=== PATIENT | male | born 1970 | race Caucasian/White ===

== ENCOUNTER 2023-08-27 14:33 | Emergency (ER) | payer OTHER, SELFPAY ==
[2023-08-27 14:48] VITALS: BP 115/85; PULSE 64; RESP 16; TEMP 36.9; O2SAT 99; BMI 25.8
--- NOTE | 2023-08-27 14:51 | XR_ITS ---
The [address] [address] Patient Name: TALON MCGRAW MRN: [id number] date: 1970 Sex: M Assigned Patient Location: ER Current Patient Location: ER Accession/Order Number: [id number] Exam Date: 08/27/2023 14:57 Report Date: 08/27/2023 15:23 At the request of: PENNIE YANES Procedure: XR ankle LT min 3V PROCEDURE: XR ankle LT min 3V, XR tibia fibula LT 2V HISTORY: left ankle injury COMPARISON: None. FINDINGS: BONES:No fracture, acute abnormality, or significant arthropathy. Degenerative enthesophyte at Achilles tendon insertion into the calcaneus. SOFT TISSUES:No visible soft tissue swelling. EFFUSION:None visible. OTHER: Negative. XR/XR ankle LT min 3V IMPRESSION: 1. No acute bone abnormality or suspicious findings. Electronically authenticated by: MARII FLORES Date: 08/27/2023 15:23
--- NOTE | 2023-08-27 14:55 | XR_ITS ---
The [address] [address] Patient Name: TALON MCGRAW MRN: [id number] date: 1970 Sex: M Assigned Patient Location: ER Current Patient Location: ER Accession/Order Number: [id number] Exam Date: 08/27/2023 14:57 Report Date: 08/27/2023 15:23 At the request of: PENNIE YANES Procedure: XR tibia fibula LT 2V PROCEDURE: XR ankle LT min 3V, XR tibia fibula LT 2V HISTORY: left ankle injury COMPARISON: None. FINDINGS: BONES:No fracture, acute abnormality, or significant arthropathy. Degenerative enthesophyte at Achilles tendon insertion into the calcaneus. SOFT TISSUES:No visible soft tissue swelling. EFFUSION:None visible. OTHER: Negative. XR/XR tibia fibula LT 2V IMPRESSION: 1. No acute bone abnormality or suspicious findings. Electronically authenticated by: MARII FLORES Date: 08/27/2023 15:23
--- NOTE | 2023-08-27 15:56 | ED.LOWEXI1 ---
HPI - Extremity Injury (Lower) General Chief Complaint: Extremity Injury, Lower Stated Complaint: LOWER EXTREMITY LEFT Time Seen by Provider: 08/27/23 14:45 Source: patient and family Mode of arrival: Wheelchair History of Present Illness HPI Narrative: the patient was stepping down on a piece of farm equipment when he inverted the left ankle as his weight came down onto the left lower extremity. He complains of pain to the lateral aspect of the left ankle. He was safe for pain prior to arrival. Do not fall to the ground and did not injure anything else. Related Data Allergies Allergy/AdvReac Type Severity Reaction Status Date / Time No Known Drug Allergies Allergy Verified 08/27/23 14:53 PFSH PFSH Social History Smoking status: Never smoker Exam Narrative Exam Narrative: Nurses notes and vital signs reviewed and patient is not hypoxic. afebrile General: Well-appearing and in no apparent distress. Skin: Warm, dry, no pallor noted. Cardiovascular: normal peripheral perfusion. Respiratory: No accessory muscle use or respiratory distress. Musculoskeletal: tenderness to the lateral aspect of the left ankle. He has normal range of motion but it is painful for him at the left ankle. Left toes with normal ROM, no calf or popliteal tenderness, no lower extremity edema/swelling, no proximal fibular tenderness Neurological: A&O x4. No cranial nerve dysfunction observed. No truncal ataxia. Moves all extremities. Sensation intact. Psychiatric: Cooperative and interactive. Normal mood and affect. Constitutional Vital Signs, click to edit/add: Last Vital Signs Temp 98.4 F 08/27/23 14:48 Pulse 64 08/27/23 14:48 Resp 16 08/27/23 14:48 BP 115/85 08/27/23 14:48 Pulse Ox 99 08/27/23 14:48 O2 Del Method Room Air 08/27/23 14:48 Course Vital Signs Vital signs: Vital Signs Temperature 98.4 F 08/27/23 14:48 Pulse Rate 64 08/27/23 14:48 Respiratory Rate 16 08/27/23 14:48 Blood Pressure 115/85 08/27/23 14:48 Pulse Oximetry 99 08/27/23 14:48 Oxygen Delivery Method Room Air 08/27/23 14:48 Temperature 98.4 F 08/27/23 14:48 Pulse Rate 64 08/27/23 14:48 Respiratory Rate 16 08/27/23 14:48 Blood Pressure 115/85 08/27/23 14:48 Pulse Oximetry 99 08/27/23 14:48 Oxygen Delivery Method Room Air 08/27/23 14:48 MDM - Extremity Injury (Lower) MDM Narrative Medical decision making narrative: x-rays of the left foot and ankle were unremarkable per radiologist. Detailed report to me noted below An Jd wrap was applied by me in the emergency Department nurse to the patient's left ankle. also applied a Velcro adjustable stirrup splint to the left lower leg and ankle. The patient was neurovascularly intact distally afterward. He was discharged home with recommendation to take [id number] medicines for pain, keep the leg elevated while inactive, apply ice as needed Imaging Data xr tib fib: Radiologist's impression: Patient Name: TALON MCGRAW MRN: [id number] date: 1970 Sex: M Assigned Patient Location: ER Current Patient Location: ER Accession/Order Number: [id number] Exam Date: 08/27/2023 14:57 Report Date: 08/27/2023 15:23 At the request of: PENNIE YANES Procedure: XR tibia fibula LT 2V PROCEDURE: XR ankle LT min 3V, XR tibia fibula LT 2V HISTORY: left ankle injury COMPARISON: None. FINDINGS: BONES:No fracture, acute abnormality, or significant arthropathy. Degenerative enthesophyte at Achilles tendon insertion into the calcaneus. SOFT TISSUES:No visible soft tissue swelling. EFFUSION:None visible. OTHER: Negative. IMPRESSION: 1. No acute bone abnormality or suspicious findings. Electronically authenticated by: MARII FLORES Date: 08/27/2023 15:23 xr ankle: Radiologist's impression: Patient Name: TALON MCGRAW MRN: [id number] date: 1970 Sex: M Assigned Patient Location: ER Current Patient Location: ER Accession/Order Number: [id number] Exam Date: 08/27/2023 14:57 Report Date: 08/27/2023 15:23 At the request of: PENNIE YANES Procedure: XR ankle LT min 3V PROCEDURE: XR ankle LT min 3V, XR tibia fibula LT 2V HISTORY: left ankle injury COMPARISON: None. FINDINGS: BONES:No fracture, acute abnormality, or significant arthropathy. Degenerative enthesophyte at Achilles tendon insertion into the calcaneus. SOFT TISSUES:No visible soft tissue swelling. EFFUSION:None visible. OTHER: Negative. IMPRESSION: 1. No acute bone abnormality or suspicious findings. Electronically authenticated by: MARII FLORES Date: 08/27/2023 15:23 Discharge Plan Discharge Chief Complaint: Extremity Injury, Lower Clinical Impression: Ankle sprain and strain Patient Disposition: Home, Self-Care Time of Disposition Decision: 15:56 Instructions: Ankle Sprain (ED), Ankle Stirrup Splint (ED) Stand Alone Forms: Portal Instructions Referrals: Shannan Carranza MD [Primary Care Provider] - 1 week
== END 2023-08-27 16:03 | disposition home or self-care (01) ==
PROVIDERS: Emergency Provider Emergency Medicine; PCP Family Medicine
DX: S93.402A Sprain of unspecified ligament of left ankle, initial encounter (principal); S96.912A Strain of unspecified muscle and tendon at ankle and foot level, left foot, initial encounter; X50.1XXA Overexertion from prolonged static or awkward postures, initial encounter
CPT/HCPCS: 73590; 73610; 99283

== ENCOUNTER 2025-02-10 07:26 | Outpatient (OUT) | payer OTHER, SELFPAY ==
--- OUTSIDE RECORDS SUMMARY | 2025-02-10 07:29 | XMS_ITS | CCD ---
Author Organization [facility] Care Team Providers Care Medical Services Assistant Name Role Phone TERE, DR SHANNAN Louie Admitting Unavailable TERE, DR SHANNAN Louie Consulting Unavailable TERE, DR SHANNAN Louie Attending Unavailable TERE, DR SHANNAN Louie Referring Unavailable [facility], DR MARII Figueroa Consulting Unavailable TERE, DR SHNANAN Louie Primary Care Unavailable TERE, DR SHANNAN Louie Attending Unavailable TERE, DR SHANNAN Louie Admitting Unavailable TERE, DR SHANNAN Louie Consulting Unavailable Shannan Carranza Unavailable Allergies Allergy Classification Reported Allergen(s) Allergy Type Date of Onset Reaction(s) Facility (1 source) patient allergy list reviewed by nurse or physicia Propensity to adverse reactions Comment:Done [employer] Other (1 source) Allergies Reconciled Propensity to adverse reactions Unknown [employer] Other Medications Completed/Discontinued Medications Medication Drug Class(es) Dates Sig (Normalized) Sig (Original) azithromycin 250 mg oral tablet (2 sources) Macrolide Antimicrobial Start: 12-17-2023 End: 12-29-2024 Azithromycin 250 mg tablet Discontinued 0 PO .COMPLEX December 17, 2023 12:00am December 29, 2024 10:20am For 250 mg dose pack: take 500 mg today (day 1), then 250 mg for 4 days (days 2-5) PO Start: 12-17-2023 Azithromycin A ctive 0 PO .COMPLEX December 17, 2023 12:00am For 250 mg dose pack: take 500 mg today (day 1), then 250 mg for 4 days (days 2-5) PO benzonatate 200 mg oral capsule (2 sources) Non-narcotic Antitussive Start: 12-17-2023 End: 12-29-2024 Benzonatate 200 mg capsule Discontinued 200 MG PO 2-3 TIMES PER DAY as needed for cough December 17, 2023 12:00am December 29, 2024 10:20am meloxicam 15 mg oral tablet (3 sources) Nonsteroidal Anti-inflammatory Drug Start: 12-17-2023 End: 12-29-2024 take 1 tablet by mouth once daily Meloxicam 15 mg tablet Discontinued 1 TAB PO Daily December 17, 2023 12:00am December 29, 2024 10:20am [employer] tablet Orally Once a day; Note: Source Status: Start; Provider: Tere Louie Start: 11-28-2022 take 1 tablet by janet th every twenty-four hours Meloxicam 15 MG 1 tablet Orally Once a day for 30 day(s) Nov, Active pravastatin sodium 40 mg oral tablet (6 sources) HMG-CoA Reductase Inhibitor Start: 06-13-2024 End: 12-29-2024 take 1 tablet by mouth once daily Pravastatin 40 mg tablet Discontinued 0 .ROUTE .COMPLEX October 17, 2024 3:05pm December 29, 2024 10:43am Take 1 tablet by mouth once daily Start: 12-17-2023 End: 06-13-2024 take 1 tablet by mouth once daily Pravastatin 40 mg tablet Discontinued 40 MG PO Daily March 17, 2024 11:39am June 13, 2024 10:43am [employer]: Take 1 tablet by mouth once daily; Note: Source Status: Start; Refills: 0; Qty: 90 Tablet; Provider: Tere Campbell ( ) take 1 tablet by janet th every twenty-four hours Pravastatin Sodium 40 MG 1 tablet Orally Once a day for 90 days Active Problems Active Problems Problem Classification Problem Date Documented Da te Episodic/Chronic Chronic obstructive pulmonary disease and bronchiectasis (3 sources) Bronchitis; Translations: [Bronchitis, not specified as acute or chronic] 12-17-2023 Episodic Disorders of lipid metabolism (5 sources) Pure hypercholesterole jason; Translations: [Pure hypercholesterole jason, unspecified] Onset: 04-07-2018 12-29-2024 Chronic Other nervous system disorders (1 source) Chronic pain; Translations: [Other chronic pain] Chronic Other non-traumatic joint disorders (4 sources) Pain in right shoulder; Translations: [PAIN IN RIGHT SHOULDER] Onset: 11-28-2022 Episodic Other nutritional; endocrine; and metabolic disorders (1 source) Body mass index 25-29 - overweight; Translations: [Body mass index (BMI) 25.0-25.9, adult] Episodic Other screening for suspected conditions (not mental disorders or infectious disease) (3 sources) Encounter for screening for malignant neoplasm of prostate; Translations: [Patient encounter status] Onset: 06-17-2022 12-29-2024 Episodic Past or Other Problems Problem Classification Problem Date Documented Da te Episodic/Chronic Other non-traumatic joint disorders (1 source) Arthralgia of the upper arm; Translations: [Pain in joint, upper arm] Onset: 06-10-2019 Episodic Results Test Name Value Interpretation Reference Range Facil ity CBC AUTO DIFFon 06-16-2022 BASO # 0.1 103/ul Normal 0.0-0.1 [facility] Comment on above: Performed By: #### C BC #### [facility] [address] [address] [address] Coral Hinkle Basophils/100 WBC (Bld) 1.8 % Normal 0.2-2.0 [facility] Comment on above: Performed By: #### C BC #### [facility] [address] [address] [address] Coral Hinkle EO # 0.1 103/ul Normal 0.0-0.7 [facility] Comment on above: Performed By: #### C BC #### [facility] [address] [address] [address] Coral Hinkle Eosinophils/100 WBC (Bld) 2.4 % Normal 0.9-7.0 [facility] Comment on above: Performed By: #### C BC #### [facility] [address] [address] [address] Coral Hinkle Erythrocyte distribution width (RBC) [Ratio] 12.8 % Normal 11.0-15.0 [facility] Comment on above: Performed By: #### C BC #### [facility] [address] [address] [address] Coral Hinkle Hematocrit (Bld) [Volume fraction] 45.4 % Normal 42.0-54.0 [facility] Comment on above: Performed By: #### C BC #### [facility] [address] [place] [address] Dr. Coral Hinkle Hemoglobin (Bld) [Mass/Vol] 15.6 g/dL Normal 14.0-18.0 [facility] Comment on above: Performed By: #### C BC #### [facility] [address] [place] [address] Dr. Coral Hinkle IG # 0.01 10e3/ul Normal 0.00-0.03 [facility] Comment on above: Performed By: #### C BC #### [facility] [address] [place] [address] Dr. Coral Hinkle IG % 0.2 % Normal 0.0-0.5 [facility] Comment on above: Performed By: #### C BC #### [facility] [address] [place] [address] Dr. Coral Hinkle LYMPH # 1.2 103/ul Normal 1.2-3.8 [facility] Comment on above: Performed By: #### C BC #### [facility] [address] [place] [address] Dr. Coral Hinkle Lymphocytes/100 WBC (Bld) 23.4 % Normal 20.5-60.0 [facility] Comment on above: Performed By: #### C BC #### [facility] [address] [place] [address] Dr. Coral Hinkle MANUAL DIFF REQ NO Normal [facility] Comment on above: Performed By: #### C BC #### [facility] [address] [place] [address] Dr. Coral Hinkle MCH (RBC) [Entitic mass] 29.8 pg Normal 25.9-34.0 [facility] Comment on above: Performed By: #### C BC #### [facility] [address] [place] [address] Dr. Coral Hinkle MCHC (RBC) [Mass/Vol] 34.4 g/dL Normal 29.9-35.2 [facility] Comment on above: Performed By: #### C BC #### [facility] [address] [address] [address] Coral Hinkle MCV (RBC) [Entitic vol] 86.6 fL Normal 80.0-94.0 [facility] Comment on above: Performed By: #### C BC #### [facility] [address] [address] [address] Coral Hinkle MONO # 0.3 103/ul Normal 0.3-0.8 [facility] Comment on above: Performed By: #### C BC #### [facility] [address] [address] [address] Coral Hinkle Monocytes/100 WBC (Bld) 6.5 % Normal 1.7-12.0 [facility] Comment on above: Performed By: #### C BC #### [facility] [address] [place] [address] Dr. Coral Hinkle NEUT # 3.3 103/ul Normal 1.4-6.5 [facility] Comment on above: Performed By: #### C BC #### [facility] [address] [place] [address] Dr. Coral Hinkle Neutrophils/100 WBC (Bld) 65.7 % Normal 43.0-75.0 [facility] Comment on above: Performed By: #### C BC #### [facility] [address] [place] [address] Dr. Coral Hinkle Platelet mean volume (Bld) [Entitic vol] 9.1 fL Critically low 9.5-13.5 [facility] Comment on above: Performed By: #### C BC #### [facility] [address] [place] [address] Dr. Coral Hinkle PLT 212 103/ul Normal 150-450 [facility] Comment on above: Performed By: #### C BC #### [facility] [address] [place] [address] Dr. Coral Hinkle RBC 5.24 106/ul Normal 4.70-6.10 [facility] Comment on above: Performed By: #### C BC #### [facility] [address] [place] [address] Dr. Coral Hinkle WBC 5.1 103/ul Normal 4.0-11.0 [facility] Comment on above: Performed By: #### C BC #### [facility] [address] [address] [address] Coral Hinkle GLYCOHEMOGLOBIN A1Con 2021 ADA RECOMMENDATION SEE BELOW Normal [facility] Comment on above: Result Comment: ADA RECOMMENDED LIMIT 4.0 - 6.0 ADA THERAPEUTIC TARGET < 7.0 ACTION SUGGESTED > 7.0 Performed By: #### A 1C #### [facility] [address] [address] [address] Coral Hinkle Glucose [Mass/Vol] 111 mg/dL Normal [facility] Comment on above: Performed By: #### A 1C #### [facility] [address] [place] [address] Dr. Coral Hinkle HbA1c (Bld) [Mass fraction] 5.5 % Normal 4.5-6.2 [facility] Comment on above: Performed By: #### A 1C #### [facility] [address] [place] [address] Dr. Coral Hinkle LIPID PROFILEon 06-16-2022 CHOL-HDL RATIO NORM SEE BELOW Normal [facility] Comment on above: Result Comment: 3.3 - 4.4 LOW RISK 4.4 - 7.1 AVERAGE RISK 7.1 - 11.0 MODERATE RISK >11.0 HIGH RISK Performed By: #### C MP, LIPID #### [facility] [address] [place] [address] Dr. Coarl Hinkle Cholesterol [Mass/Vol] 204 mg/dL Critically high <=200 [facility] Comment on above: Performed By: #### C MP, LIPID #### [facility] [address] [address] [address] Coral Hinkle Cholesterol in HDL [Mass/Vol] 41 mg/dL Normal 40-60 [facility] Comment on above: Performed By: #### C MP, LIPID #### [facility] [address] [address] [address] Coral Hinkle Cholesterol in LDL [Mass/Vol] 121.4 mg/dL Normal [facility] Comment on above: Performed By: #### C MP, LIPID #### [facility] [address] [address] [address] Coral Hinkle Cholesterol.total/Cho lesterol in HDL [Mass ratio] 5.0 {ratio} Normal [facility] Comment on above: Performed By: #### C MP, LIPID #### [facility] [address] [place] [address] Dr. Coral Hinkle HDL NORMAL > or = 60 mg/dl - LOW CARDIOVASCULAR RISK <40 mg/dl - HIGH CARDIOVASCULAR RISK Normal [facility] Comment on above: Performed By: #### C MP, LIPID #### [facility] [address] [place] [address] Dr. Coral Hinkle LDL CALC NORMAL SEE BELOW Normal [facility] Comment on above: Result Comment: <100 mg/dl OPTIMAL 100 - 129 mg/dl NEAR OR ABOVE OPTIMAL 130 - 159 mg/dl BORDERLINE HIGH 160 - 189 mg/dl HIGH >190 mg/dl VERY HIGH Performed By: #### C MP, LIPID #### [facility] [address] [place] [address] Dr. Coral Hinkle Triglyceride [Mass/Vol] 208 mg/dL Critically high <=150 [facility] Comment on above: Performed By: #### C MP, LIPID #### [facility] [address] [place] [address] Dr. Coral Hinkle VLDL CALC 41.6 mg/dL Normal [facility] Comment on above: Performed By: #### C MP, LIPID #### [facility] [address] [place] [address] Dr. Coral Hinkle PROF 14(COMP METB)on 022 Albumin [Mass/Vol] 4.1 g/dL Normal 3.4-5.0 [facility] Comment on above: Performed By: #### C MP, LIPID #### [facility] [address] [place] [address] Dr. Coral Hinkle Albumin/Globulin [Mass ratio] 1.1 {ratio} Normal [facility] Comment on above: Performed By: #### C MP, LIPID #### [facility] [address] [address] [address] Coral Hinkle ALP [Catalytic activity/Vol] 57 U/L Normal 46-116 [facility] Comment on above: Performed By: #### C MP, LIPID #### [facility] [address] [address] [address] Coral Hinkle ALT [Catalytic activity/Vol] 32 U/L Normal 16-63 [facility] Comment on above: Performed By: #### C MP, LIPID #### [facility] [address] [address] [address] Coral Hinkle Anion gap [Moles/Vol] 8.0 mmol/L Normal [facility] Comment on above: Performed By: #### C MP, LIPID #### [facility] [address] [address] [address] Coral Hinkle AST [Catalytic activity/Vol] 14 U/L Critically low 15-37 [facility] Comment on above: Performed By: #### C MP, LIPID #### [facility] [address] [address] [address] Coral Hinkle Bilirubin [Mass/Vol] 0.6 mg/dL Normal 0.2-1.0 [facility] Comment on above: Performed By: #### C MP, LIPID #### [facility] [address] [address] [address] Coral Hinkle Calcium [Mass/Vol] 9.0 mg/dL Normal 8.5-10.1 [facility] Comment on above: Performed By: #### C MP, LIPID #### [facility] [address] [address] [address] Coral Hinkle Chloride [Moles/Vol] 101 mmol/L Normal 98-107 [facility] Comment on above: Performed By: #### C MP, LIPID #### [facility] [address] [address] [address] Coral Hinkle CO2 [Moles/Vol] 33.9 mmol/L Critically high 21.0-32.0 [facility] Comment on above: Performed By: #### C MP, LIPID #### [facility] [address] [address] [address] Coral Hinkle Creatinine [Mass/Vol] 1.06 mg/dL Normal 0.70-1.30 [facility] Comment on above: Performed By: #### C MP, LIPID #### [facility] [address] [address] [address] Coral Hinkle EGFR-AF TURKS AND CAICOS ISLANDER >60 Normal >=60 [facility] Comment on above: Performed By: #### C MP, LIPID #### [facility] [address] [address] [address] Coral Hinkle EGFR-NON AF TURKS AND CAICOS ISLANDER >60 Normal >=60 [facility] Comment on above: Performed By: #### C MP, LIPID #### [facility] [address] [address] [address] Coral Hinkle Globulin (S) [Mass/Vol] 3.6 g/dL Normal [facility] Comment on above: Performed By: #### C MP, LIPID #### [facility] [address] [address] [address] Coral Hinkle Glucose [Mass/Vol] 121 mg/dL Critically high 74-106 [facility] Comment on above: Performed By: #### C MP, LIPID #### [facility] [address] [address] [address] Coral Hinkle Potassium [Moles/Vol] 3.9 mmol/L Normal 3.5-5.1 [facility] Comment on above: Performed By: #### C MP, LIPID #### [facility] [address] [address] [address] Coral Hinkle Protein [Mass/Vol] 7.7 g/dL Normal 6.4-8.[address] [facility] Comment on above: Performed By: #### C MP, LIPID #### [facility] [address] [address] [address] Coral Hinkle Sodium [Moles/Vol] 139 mmol/L Normal 136-145 [facility] Comment on above: Performed By: #### C MP, LIPID #### [facility] [address] [place], [place] [address] Dr. Coral Hinkle Urea nitrogen [Mass/Vol] 17.0 mg/dL Normal 7.0-18.0 [facility] Comment on above: Performed By: #### C MP, LIPID #### [facility] [address] [place], [place] [address] Dr. Coral Hinkle Urea nitrogen/Creatinine [Mass ratio] 16.0 mg/mg Normal [facility] Comment on above: Performed By: #### C MP, LIPID #### [facility] [address] [place], [place] [address] Dr. Coral Hinkle Vital Signs Date Time Vital Sign Value Performing Clinician Faci lity 12-29-2024 10:18-0500 Body height 180.34 cm [facility] 12-29-2024 10:18-0500 Body mass index (BMI) [Ratio] 26.7 kg/m2 [facility] 12-29-2024 10:18-0500 Body weight 87.08 kg [facility] 12-29-2024 10:18-0500 Diastolic blood pressure 79 mm[Hg] [facility] 12-29-2024 10:18-0500 Heart rate 54 /min [facility] 12-29-2024 10:18-0500 Systolic blood pressure 117 mm[Hg] [facility] Encounters Encounter Date Encounter Type Care Provider Facility Start: 12-29-2024 Patient encounter status [facility] Start: 12-29-2024 End: 12-29-2024 ambulatory [facility] [place] [facility] Work Phone: Start: 12-29-2024 End: 12-29-2024 Encounter for general adult medical examination without abnormal findings [facility] Start: 12-29-2024 End: 12-29-2024 Patient encounter procedure [facility] Physician [facility] Work Phone: Start: 12-17-2023 End: 12-17-2023 ambulatory [facility] [place] [facility] Work Phone: Start: 12-17-2023 End: 12-17-2023 Patient encounter procedure [facility] Physician [facility] Work Phone: Start: 07-29-2023 End: 07-29-2023 ambulatory Shannan Carranza Other [employer] Other Start: 07-29-2023 Telephone encounter Shannan Carranza [facility] Start: 11-28-2022 End: 11-29-[address] MARII FLORES Facility:[facility] Start: 06-17-2022 Encounter for genera l adult medical examination without abnormal findings DR SHANNAN CARRANZA [facility] Start: 06-16-2022 End: 06-17-[address] SHANNAN CARRANZA Facility:[facility] Start: 06-16-2022 End: 06-17-2022 Encounter for general adult medical examination without abnormal findings DR SHANNAN CARRANZA Facility:[facility] Start: 02-12-2022 Adult health examination Shannan Carranza Other [employer] Other Procedures Date Procedure Procedure Detail Performing Clinician Start: 06-16-[address] SHANNAN CARRANZA Comment on above: Performed By: #### P [facility] #### [facility] [address] [place] [address] Dr. Coral Hinkle Start: 04-09-2018 General examination of patient Shannan Carranza Other Screening for malign ant neoplasm of colon Shannan Carranza Other Screening for malign ant neoplasm of prostate Shannan Carranza Other Plan of Treatment Date Care Activity Detail Author Comprehensive metabo lic 2000 panel - Serum or Plasma [facility] enter [facility] Payers Date Payer Category Payer Unknown [id number] [id number]. [id number] 1970 Unknown [id number] [id number] 1959 Unknown [id number] Social History Date Type Detail Facility Unknown if ever smoked [employer] Other Sex Assigned At Sex Assigned At Bir th [employer] Other Start: 1970 Sex Assigned At Male [facility] Tobacco smoking status NHIS Unknown if ever smoked [facility] Work Phone: Start: 12-29-2024 Sex Male (finding) [facility] Clinical Note 11-28-2022 Note Date & Type Note Facility 11-28-2022 Note PROCEDURE: XR SHOULD ER RT 2V or > HISTORY: Pain of right shoulder joint ; chronic posterior right shoulder pain COMPARISON: None. FINDINGS: BONES:Mild narrowing of the acromioclavicular joint. Unremarkable glenohumeral joint. No fracture, dislocation, or bone lesion. SOFT TISSUES:No visible soft tissue swelling. EFFUSION:None visible. OTHER: Negative. IMPRESSION: 1. Minimal degenerative changes which predominantly involve the acromioclavicular joint. Consider MRI of right shoulder if symptoms persist. Electronically authenticated by: MARII FLORES Date: 2022-11-28 10:34 [facility] Evaluation note Note Date & Type Note Facility Evaluation note No Information [facility] [employer] Other Evaluation note Note Date & Type Note Facility Evaluation note Diagnosis Onset Date Bronchitis acute [facility] Work Phone: Evaluation note Note Date & Type Note Facility Evaluation note Diagnosis Onset Date Resolution Hyperlipidemia acute December 042024 10:13am Screening PSA (prostate specific antigen) acute December 29, 2024 10:13am Wellness examination acute Febr uary 2024 10:13am [facility] Work Phone: History general Narrative - Reported Note Date & Type Note Facility History general Narrative - Reported Type Medical History hyperlipidemia Surgical History colonoscopy Surgical History tonsillectomy Surgical History appendectomy [facility] [employer] Other Summary Purpose Family History No Family History Records Found Advance Directives Advance Directive Response Recorded Date/ Time Advance Directives No December 1:44pm Chief Complaint and Reason for Visit Chief Complaint Cough, Headache [phone] Reason for Visit Bronchitis Chief Complaint Admit Date wellness December 29, 2024 10:13am Reason for Visit Admit Date Hyperlipidemia December 29, 2024 10:13am Screening PSA (prostate specific antigen ) December 29, 2024 10:13am Wellness examination December 29, 2024 10:13am Additional Source Comments (unrecognized sect ion and content) No Status Records Found INFORMATION SOURCE (unrecogn ized section and content) DATE CREATED AUTHOR 12/03/2022 [facility] REASON FOR VISIT (unrecogniz ed section and content) refill Care Teams (unrecognized sec tion and content) Team Status: Active Member Role Status Dates Shannan Carranza MD Primary Care Provider Active Team Status: Inactive Member Role Status Dates Shannan Carranza MD Primary Care Provide r, Attending Provider Active Start: December 17, 2023 End: December 17, 2023 Team Status: Inactive Member Role Status Dates Shannan Carranza MD Primary Care Provide r, Attending Provider Active Start: December 29, 2024 End: December 29, 2024 Goals (unrecognized section and content) Goals may be documented in a n alternate section FOR RECORDS PERTAINING TO PATIENTS WHO ARE OR HAVE BEEN ENROLLED IN A CHEMICAL DEPENDENCY/SUBSTANCEABUSE PROGRAM, SOME INFORMATION MAY BE OMITTED. This clinical summary was aggregated from multiple sources. Caution should be exercised in using it in the provision of clinical care. This summary normalizes information from multiple sources, and as a consequence, information in this document may materially change the coding, format and clinical context of patient data. In addition, data may be omitted in some cases. CLINICAL DECISIONS SHOULD BE BASED ON THE PRIMARY CLINICAL RECORDS. [facility]. provides no warranty or guarantee of the accuracy or completeness of information in this document.
[2025-02-10 07:57] LABS: Basophils Absolute Auto 0.1 10^3/uL (0.0-0.1); Basophils Percent Auto 2.6 % (0.2-2.0); Eosinophils Absolute Auto 0.2 10^3/uL (0.0-0.7); Eosinophils Percent Auto 4.4 % (0.9-7.0); Hematocrit 44.4 % (42.0-54.0); Hemoglobin 15.5 g/dL (14.0-18.0); Immature Granulocytes Abs Auto 0.01 10^3/uL (0.00-0.03); Immature Granulocytes Pct Auto 0.2 % (0.0-0.5); Lymphocytes Absolute Auto 1.1 10^3/uL (1.2-3.8); Mean Corpuscular HGB Conc 34.9 g/dL (29.9-35.2); Mean Platelet Volume 8.9 fL (9.5-13.5); Monocytes Absolute Auto 0.3 10^3/uL (0.3-0.8); Monocytes Percent Auto 6.8 % (1.7-12.0); Neutrophils Absolute Auto 2.6 10^3/uL (1.4-6.5); Platelet Count 223 10^3/uL (150-450); Red Blood Count 5.16 10^6/uL (4.70-6.10); Red Cell Distribution Width 12.4 % (11.0-15.0); White Blood Count 4.3 10^3/uL (4.0-11.0)
[2025-02-10 08:07] LABS: Alanine Aminotransferase 30 U/L (16-63); Albumin Level 3.6 g/dL (3.4-5.0); Alkaline Phosphatase 65 U/L (46-116); Anion Gap 8.1; Aspartate Amino Transferase 15 U/L (15-37); BUN Creatinine Ratio 15.7; Bilirubin Total 0.5 mg/dL (0.2-1.0); Calcium 8.7 mg/dL (8.5-10.1); Carbon Dioxide 30.4 mmol/L (21.0-32.0); Chloride 105 mmol/L (98-107); Estimated GFR (African America >60 (>=60 mL/min/1.73m^2); Estimated GFR (Non-African Ame >60 (>=60 mL/min/1.73m^2); Glucose 116 mg/dL (74-106); Potassium 4.5 mmol/L (3.5-5.1); Sodium 139 mmol/L (136-145)
[2025-02-10 08:08] LABS: Albumin Globulin Ratio 1.1; Chol HDL Ratio 5.6; Cholesterol 192 mg/dL (<=200); Globulin 3.4 g/dL; HDL Cholesterol 34 mg/dL (40-60); Triglycerides 197 mg/dL (<=150); VLDL CHOLESTEROL 39.4 mg/dL
[2025-02-10 09:19] LABS: Prostate Specific Antigen Scrn 1.25 ng/mL (<=4.00)
== END 2025-02-10 07:27 | disposition home or self-care (01) ==
LOC: LAB 07:27
PROVIDERS: PCP Family Medicine; Visit Provider Family Medicine
DX: Z00.00 Encounter for general adult medical examination without abnormal findings (principal); E78.5 Hyperlipidemia, unspecified; Z12.5 Encounter for screening for malignant neoplasm of prostate
CPT/HCPCS: 36415; 80053; 80061; 85025; G0103